=== PATIENT | female | born 1950 | race African-American/Black ===

== ENCOUNTER 2025-01-18 06:20 | Emergency (ER) | payer BC ==
[~2025-01-18] VITALS: Ht 154.9 cm; Wt 57.6 kg
[2025-01-18 06:24] VITALS: TEMP 36.6; O2SAT 99
[2025-01-18] MEDS: ACETAMINOPHEN 325MG TABLET PO ONE (06:58)
[2025-01-18 07:53] LABS: CLARITY URINE CLEAR (CLEAR); COLOR URINE YELLOW (YELLOW); GLUCOSE URINE NEGATIVE (NEGATIVE); KETONES URINE NEGATIVE (NEGATIVE); LEUKOCYTE ESTERASE URINE NEGATIVE (NEGATIVE); NITRITE URINE NEGATIVE (NEGATIVE); OCCULT BLOOD URINE NEGATIVE (NEGATIVE); PH URINE 6.5 (4.5-8.0); PROTEIN URINE NEGATIVE (NEGATIVE); SPECIFIC GRAVITY URINE 1.008 (1.005-1.030); UROBILINOGEN URINE 0.2 E.U./dL (0.2-1.0)
[2025-01-18 09:53] VITALS: BP 169/82; PULSE 62; RESP 16; O2SAT 100
== END 2025-01-18 10:26 | disposition home or self-care (01) ==
LOC: ER 06:20
DX: D25.9 Leiomyoma of uterus, unspecified (principal); R10.2 Pelvic and perineal pain; Z88.0 Allergy status to penicillin
CPT/HCPCS: 76830; 76856; 81003; 81025; 99284